=== PATIENT | female | born 1970 | race Caucasian/White ===

== ENCOUNTER 2024-09-29 21:26 | Emergency (ER) | payer OTHER, SELFPAY ==
--- NOTE | ~2024-09-29 | US_ITS ---
EXAMINATION:US venous doppler LE LT INDICATION:Left leg pain and swelling TECHNIQUE: Multiple grayscale, color flow and Doppler images of the left lower extremity deep venous systems were obtained and reviewed. COMPARISON:No prior studies for comparison. FINDINGS: There is deep venous thrombosis of the left popliteal, posterior tibial, peroneal and gastr ocnemius veins. The femoral vein is patent. IMPRESSION: 1: Extensive deep venous thrombosis of the left lower extremity. Reviewed, dictated and finalized at location B.
[2024-09-29 21:29] VITALS: BP 147/77; PULSE 77; RESP 20; TEMP 36.9; O2SAT 100
--- OUTSIDE RECORDS SUMMARY | 2024-09-29 23:31 | XMS_ITS | Clinical Summary ---
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 Gender Identity Not on file Sexual Orientation Not on file Plan of Treatment Health Maintenance Due Date Last Done Comments DTAP/TDAP/TD VACCINES (1 - Tdap) 1989 HEPATITIS B VACCINES (1 of 3 - 19+ 3-dose series) 06/1989 HPV/Cotest (21-29) 1991 CERVICAL CANCER SCREENING 2000 HPV/Cotest (30-65) 2000 PAP SMEAR 2000 BREAST CANCER SCREENING 2010 COLORECTAL SCREENING 2015 Colorectal Cancer Screening 2015 FIT-DNA Q 3 years 2015 FIT/FOBT Q 1 year 2015 Flex Sig/CT Colonography Q 5 years 2015 ZOSTER VACCINE (1 of 2) 2020 INFLUENZA VACCINE (#1) 2024 Insurance [facility] [id number]
--- OUTSIDE RECORDS SUMMARY | 2024-09-29 23:31 | XMS_ITS | Clinical Summary ---
Author Organization [facility] Address [address] [place] [address] Care Team Providers Care Manager Pest Name Role Phone Sana Jimenez MD Unavailable [phone] Jolie Jean-Baptiste MD Unavailable [phone] Nikki Abel NP Primary Care Provider [phone] Allergies Active Allergy Reactions Criticality Noted Date Comments Other Rash Medium Laundry detergent (Cheer brand) Medications cranberry 500 mg capsule Active fluticasone propionate (FLONASE) 50 mcg/actuation nasal spray 01/09/2016 Active aspirin 81 MG oral suspension Active calcium carbonate (OS-JO) 1,250 mg (500 mg elemental) tablet 11/01/2019 Active docusate sodium (Colace) 100 mg capsule 12/16/2021 Active Active Problems Problem Noted Date Diagnosed Date Plantar fasciitis of left foot 05/19/2024 Assessment & Plan (05/19/2024 7:58 AM CDT): Referral to podiatry 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 Reviewed diagnosis and findings on ultrasound of the thyroid last year. Relatively asymptomatic. If starts growing or causing more symptoms then we can have her see ENT for consultation Slow transit constipation 04/02/2023 Assessment & Plan (04/02/2023 5:20 PM RN FLOAT): Encouraged her to increase fluid intake and add fiber. Okay to take MiraLax daily as needed if Colace is insufficient. Annual physical exam 01/05/2023 Overview (02/08/2024): Lab: Pap:all normal Due labs Jeovanny: to go back to yearly screening. Colonoscopy:2020 cologuard. Will repeat in 2023- will order BMD: Gardasil: Assessment & Plan (05/19/2024 7:54 AM CDT): -Recommended: Healthy diet. Avoiding junk food/fast food. -30 minutes of exercise most days of the week. Increase to 45 minutes for weight loss. Health Maintenance reviewed - up-to-date. -Influenza vaccine every year Recommend: -There are no preventive care reminders to display for this patient. -F/u in 1 year for Annual PE or sooner if needed Assessment & Plan (02/08/2024 3:57 PM RN FLOAT): Pap done. RTO 12m. I will send the results to the portal. If she has not heard in a week, to call the office. She is due for cologuard. We discussed her cousin with colon cancer. She doesn't qualify for genetic testing. She will do the cologuard this year and we will go from there. False positives and negatives discussed. Assessment & Plan (01/05/2023 1:39 PM RN FLOAT): Pap done. RTO 12m. I will send the results to the portal. If she has not heard in a week, to call the office. Chronic midline low back pain without sciatica 0 05/07/2018 Endometriosis 08/18/2011 Overview (08/29/2019): Note: per Dr. Juan Manuel Stanton at [facility] H/O IUI conception Resolved Problems Problem Noted Date Diagnosed Date Resolved Date RLQ abdominal pain 01/05/2023 Assessment & Plan (01/05/2023 2:03 PM RN FLOAT): To watch diet To work on constipation To see if it is activity related. Well woman exam with routine gynecological exam 05/07/2018 01/05/2023 Goiter 10/16/2017 04/02/2023 Urinary retention 10/21/2016 04/02/2023 Deep vein thrombosis (DVT) of lower extremity 08/27/19 16 04/02/2023 Encounters Date Type Department Care Team Description 08/08/2024 Results Follow-Up [facility] [address] [facility] [address] [place] [id number] Jolie Jean-Baptiste MD Screening Mammogram Bilateral W Apolinar 08/06/2024 9:15 AM CDT - 08/06/2024 11:59 PM CDT Hospital Encounter [facility] [address] [place] [address] Screening mammogram for breast cancer Discharge Disposition: Discharge to home or self care from Last 3 Months Immunizations Immunization Administration Dates Next Due Hep B Vaccine 07/12/2002,06/09/2002 Influenza, Quadrivalent, Rec ombinant, Egg Free, Preservative Free, Intramuscular 11/28/2021,11/16/2019,11/05/2018 Influenza, Quadrivalent, Spl it, Preservative Free, Intradermal 12/01/2022 Influenza, Quadrivalent, Spl it, Preservative Free, Intramuscular 01/02/2018,12/20/2016,12/18/2012 Influenza, Trivalent, Preser vative Free, Intramuscular 12/20/2016 Influenza, Unspecified 12/15/2023 MMR 02/03/1994 Measles 10/29/1972 Moderna SARS-CoV-2 Monovalen t Vaccination (12+ YRS) 06/28/2021,02/24/2021,06/08/2020,05/11 Pfizer Sars-Cov-2 Bivalent V accination (12+ YRS) 12/07/2021 Pneumococcal Polysaccharide PPV23 02/14/2016 Td, adsorbed 08/31/2001,03/31/1996,03/16/1986 Tdap 11/16/2019,03/02/2004 ZOSTER LIVE 02/24/2021 ZOSTER Recombinant 05/25/2021,02/24/2021, 021 Surgical History Surgery Date Site/Laterality Comments RI TONSILLECTOMY PRIMARY/SECONDARY <AGE 12 Tonsillectomy - (1975) (Added by TW Conv) RI LAPAROSCOPY W/RMVL ADNEXA L STRUCTURES Laparoscopy With Adnexectomy Unilateral Right - Left ovarian cystectomy; 11/2015 (Added by TW Conv) LAPAROTOMY OOPHERECTOMY Right LAPAROSCOPIC OVARIAN CYSTECTOMY Bilateral Medical History Medical History Date Comments Palpitations monitor was nega tive in the past Anemia 2011 History of anemi a - (Added by TW Conv) Headache Sinus headache - (Added by TW Conv) Acute embolism and thrombosi s of deep vein of left lower extremity (HCC) provoked by OCPs an d Plane flight Personal history of other me dical treatment History of cancer antigen 12 5 (CA-125) measurement - (Added by TW Conv) Endometriosis of ovary Endometri angus of ovary - bilateral; 11/2015 (Added by TW Conv) Constipation Migraines high school Family History Medical History Relation Name Comments Colon cancer Cousin Ryanne Peters's daught er. Asthma Daughter Jessica COPD Father Nehemias Cancer Father Nehemias Lung cancer Father Nehemias Breast cancer Father's Sister Bladder Cancer Maternal Grandfather Harvinder Famil y history of malignant neoplasm of urinary bladder - diagnosed age 96 (Added by TW Conv) Blood Clot Mother Sahara Family history of blood clots - (Added by TW Conv) Hyperlipidemia Mother Sahara Family histor y of hyperlipidemia - (Added by TW Conv) Hypertension Mother Sahara Family history of hypertension - (Added by TW Conv) Breast cancer Mother's Sister 1 Sanjuana Family hi story of malignant neoplasm of breast - diagnosed age 39 (Added by TW Conv) Stroke Mother's Sister 1 Sanjuana Uterine cancer Mother's Sister 2 Lorraine Family h istory of malignant neoplasm of uterus - diagnosed age 65 (Added by TW Conv) Bone cancer Mother's Sister 3 Madison Kidney cancer Mother's Sister 3 Madison duodenal Cancer Mother's Sister 3 Madison Ovarian cancer Neg Hx no change cmt 01/06/23 Thyroid cancer Neg Hx Relation Name Status Comments Cousin Ryanne Daughter Jessica Alive Father Nehemias Father's Sister Maternal Grandfather Harvinder Mother Sahara Alive Mother's Sister 1 Sanjuana Alive Mother's Sister 2 Lorraine Alive Mother's Sister 3 Madison Alive Social History Tobacco Use Types Packs/Day Years Used Date Smoking Tobacco: Never Smokeless Tobacco: Never Tobacco Cessation:Counseling Given: Not Answered Alcohol Use Standard Drinks/Week Comments Never 0 (1 standard drink = 0.6 oz pur e alcohol) Humiliation, Afraid, Rape, and Kick questionnair e Answer Date Recorded Within the last year, have y ou been afraid of your partner or ex-partner? No 01/05/2023 Within the last year, have y ou been humiliated or emotionally abused in other ways by your partner or ex-partner? No Within the last year, have y ou been kicked, hit, slapped, or otherwise physically hurt by your partner or ex-partner? No 01/05/2023 Within the last year, have y ou been raped or forced to have any kind of sexual activity by your partner or ex-partner? No 01/05/2023 Social Connection and Isolation Panel [NHANES] A nswer Date Recorded Frequency of Communication with Friends and Fami ly Not on file 05/07/2018 Frequency of Social Gatherings with Friends and Family Not on file 05/07/2018 Attends Worship Services Not on file 05/07 Active Member of Clubs or Organizations Not on f ile 05/07/2018 Attends Club or Organization Meetings Not on deonte e 05/07/2018 Marital Status 05/07/2018 AUDIT-C Answer Date Recorded Q1: How often do you have a drink containing alcohol? Never 05/19/2024 Q2: How many drinks containi ng alcohol do you have on a typical day when you are drinking? Patient does not drink Q3: How often do you have si x or more drinks on one occasion? 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 Not on file Obstetrics History Para Term AB IAB SAB Ectopic Multiple Livin g Live Births 1 1 1 1 1 Date Outcome GA Total Labor Labor/2nd/3rd Weight Sex Type Anes PTL Juliet A1 A5 Name Clin 2005 Term 39w0 d 3.629 kg (8 lb) F Vag-S pont Living Last Filed Vital Signs Vital Sign Reading Time Taken Comments Blood Pressure 118/74 05/19/2024 7:03 AM CDT Pulse 70 05/19/2024 7:03 AM CDT Temperature 36.5 C (97.7 F) 05/19/2024 7:03 AM CDT Respiratory Rate 16 05/19/2024 7:03 AM CDT Oxygen Saturation 95% 05/19/2024 7:03 AM CDT Inhaled Oxygen Concentration - - Weight 71.2 kg (157 lb) 08/06/2024 9:27 AM CDT Height 170.2 cm (5' 7) 08/06/2024 9:27 AM CDT Body Mass Index 24.59 08/06/2024 9:27 AM CDT Plan of Treatment Health Maintenance Due Date Last Done Comments Covid-19 Vaccine ( season) 2023 12/07/2021, 06/28/2021, 02/24/2021, Additional history exists Influenza Vaccine (#1) 2024 , 12/01/2022, 11/28/2021, Additional history exists Cervical Cancer Screening 02/07/20252023, 01/05/2023, 04/29/2017 Depression Screening 05/19/2025 05/19/2024, 04/02/2023, 01/05/2023 Regular Well Visit/Exam 18-64 05/19/2025 05/19/2024, 02/08/2024, 04/02/2023, Additional history exists Breast Cancer Screening-Mammogram 08/06/2025 08/06/2024, 08/07/2023, 05/24/2022, Additional history exists Colon Cancer Screening-DNA Stool 03/30/2027 03/30/2024, 12/02/2020 DTaP/Tdap/Td Vaccine (3 - Td or Tdap) 11/15/2029 11/16/2019, 03/02/2004, 08/31/2001, Additional history exists Hepatitis B Screening Completed 07/12/2002, 003 Pneumococcal vaccine <65 Aged Out 02/14/2016 No longer eligible based on patient's age to complete this topic Zoster Vaccine Completed 05/25/2021, 01/31, 02/24/2021, Additional history exists Hepatitis C Screening Completed 04/10/2023 Procedures Procedure Name Priority Date/Time Associated Diagnosis Comments SCREENING MAMMOGRAM BILATERAL W APOLINAR Schedule Routine, Read Routine (OP Routine) 08/06/2024 9:32 AM CDT Screening mammogram for breast cancer STOOL DNA COLOGUARD Routine 03/30/2024 9:10 AM RN FLOAT Colon cancer screening PAP AND HPV, REFLEX TO HPV GENOTYPES Routine 02/08/2024 4:05 PM RN FLOAT Screening for cervical cancer HEPATITIS C ANTIBODY Routine 04/10/2023 7:59 AM RN FLOAT Annual physical exam Encounter for hepatitis C screening test for low risk patient from Last 3 Months or Most Recently Relevant to Health Maintenance Results * Screening Mammogram Bilateral W Apolinar (08/06/2024 9:32 AM CDT) Anatomical Region Laterality Modality Breast Bilateral Mammography Impressions 08/07/2024 4:36 PM CDT Bilateral No evidence of malignancy in either breast. OVERALL BI-RADS FINAL ASSESSMENT: 2 - Benign RECOMMENDATION: Recommend bilateral annual screening mammography. Narrative 08/07/2024 4:36 PM CDT EXAMINATION: Screening Mammogram Bilateral W Apolinar: 08/06/2024 COMPARISON: Relevant prior studies available at the time of interpretation were reviewed. TECHNIQUE: Mammography was performed with 2D and digital breast tomosynthesis (DBT) images. CAD was utilized. BREAST PARENCHYMAL COMPOSITION: The breasts are heterogeneously dense, which may obscure small masses. FINDINGS: Bilateral There is no suspicious mass, calcification, or architectural distortion in either breast.There are benign calcifications in both breasts. us Jolie Jean-Baptiste MD IMG MAMMO PROCEDURE S Final Result * Stool DNA - Cologuard (03/30/2024 9:10 AM RN FLOAT) Stool DNA - Cologuard Negative Negative [facility] (CLIA #:[id number]) Comment: NEGATIVE TEST RESULT. A negative Cologuard result indicates a low likelihood that a colorectal cancer (CRC) or advanced adenoma (adenomatous polyps with more advanced pre-malignant features) is present. The chance that a person with a negative Cologuard test has a colorectal cancer is less than 1 in 1500 (negative predictive value >99.9%) or has an advanced adenoma is less than 5.3% (negative predictive value 94.7%). These data are based on a prospective cross-sectional study of 10,000 individuals at average risk for colorectal cancer who were screened with both Cologuard and colonoscopy. (Sahil Rajput et al, N Engl J Med 2014;370(14):4897-3495) The normal value (reference range) for this assay is negative. COLOGUARD RE-SCREENING RECOMMENDATION: Periodic colorectal cancer screening is an important part of preventive healthcare for asymptomatic individuals at average risk for colorectal cancer. Following a negative Cologuard result, the [place] Cancer Society and U.S. Multi-Society Task Force screening guidelines recommend a Cologuard re-screening interval of 3 years. References: [place] [employer] Society Guideline for Colorectal Cancer Screening: https://www.cancer.org/cancer/inqyf-fefdsi-wpecal/cxakxgbbp-xwzqokfad-prfevxu/ac s-rec ommendations.html.; Sriram BRAVO, Annamarie CAMPBELL, Lucas BatesK, Colorectal Cancer Screening: Recommendations for Physicians and Patients from the U.S. Multi-Society Task Force on Colorectal Cancer Screening , Am J Gastroenterology 2017; 112:2746-7679. TEST DESCRIPTION: Composite algorithmic analysis of stool DNA-biomarkers with hemoglobin immunoassay. Quantitative values of individual biomarkers are not reportable and are not associated with individual biomarker result reference ranges. Cologuard is intended for colorectal cancer screening of adults of either sex, 45 years or older, who are at average-risk for colorectal cancer (CRC). Cologuard has been approved for use by the U.S. FDA. The performance of Cologuard was established in a cross sectional study of average-risk adults aged 50-84. Cologuard performance in patients ages 45 to 49 years was estimated by sub-group analysis of near-age groups. Colonoscopies performed for a positive result may find as the most clinically significant lesion: colorectal cancer [4.0%], advanced adenoma (including sessile serrated polyps greater than or equal to 1cm diameter) [20%] or non- advanced adenoma [31%]; or no colorectal neoplasia [45%]. These estimates are derived from a prospective cross-sectional screening study of 10,000 individuals at average risk for colorectal cancer who were screened with both Cologuard and colonoscopy. (Sahil Broussard al, N Engl J Med 2014;370(14):9271-7221.) Cologuard may produce a false negative or false positive result (no colorectal cancer or precancerous polyp present at colonoscopy follow up). A negative Cologuard test result does not guarantee the absence of CRC or advanced adenoma (pre-cancer). The current Cologuard screening interval is every 3 years. ([place] Cancer Society and U.S. Multi-Society Task Force). Cologuard performance data in a 10,000 patient pivotal study using colonoscopy as the reference method can be accessed at the following location: www.Decide.com/results. Additional description of the Cologuard test process, warnings and precautions can be found at www.Reduce Datard.com. Stool 03/30/2024 9:10 AM RN FLOAT 03/31/2024 10:13 AM RN FLOAT us Jolie Jean-Baptiste MD LAB BODY FLUIDS AND STOOLS ORDERABLES Final Result [facility] (CLIA #:[id number]) [place] [place] [address] * Pap and HPV, reflex to HPV Genotypes (02/08/2024 4:05 PM RN FLOAT) CLINICAL INFORMATION: [facility] Comment:WWE LMP [facility] Comment:UNKNOWN Previous Pap [facility] Comment:NONE GIVEN Prev. Bx [facility] Comment:NONE GIVEN SOURCE: [facility] Comment:Cervix, Endocervix Pap, specimen adequacy [facility] Comment:SATISFACTORY FOR JOSE CARLOS LUATION HPV interp [facility] Comment: Cytology Results: Negative for intraepithelial lesion or malignancy. Atrophic pattern; predominantly parabasal cells COMMENTS [facility] Comment: This Pap test has been evaluated with computer assisted technology. 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 It is not a diagnostic test and is subject to false negative and false positive results. It is most reliable when a satisfactory sample, regularly obtained, is submitted with relevant clinical findings and history, and when the Pap result is evaluated along with historic and current clinical information. Human papillomavirus DNA, High Risk E6/E7 Not Detected NOT DETECTED [facility] Comment: Not Detected High Risk HPV types (16,18,31,33,35,39,45,51,52, 56,58,59,66,68) were not detected. Other HPV types which cause anogenital lesions may be present. The significance of the other types of HPV in malignant processes has not been established. Methodology: Real Time PCR Thin prep-Endocervica l 02/08/2024 4:05 PM RN FLOAT 02/09/2024 4:29 AM RN FLOAT Jolie Jean-Baptiste MD LAB CYTOLOGY ORDERA BLES Final Result [facility] [address] [address] [place] [id number] [address] * Hepatitis C antibody Blood (04/10/2023 7:59 AM RN FLOAT) Hep C Ab Nonreactive Nonreactive [facility] Comment: Interpretive Data Nonreactive: Antibodies to HCV not detected. Does NOT exclude the possibility of recent exposure to HCV. Equivocal: Equivocal for HCV antibodies. Supplemental molecular testing will be automatically performed to determine infection status in accordance with current CDC screening recommendations. Reactive: Positive for HCV antibodies. This may represent current or past HCV infection. Supplemental molecular testing will be automatically performed to determine current infection status in accordance with current CDC screening recommendations. Interpretive data was last revised on 2019. Blood 04/10/2023 7:59 AM RN FLOAT 04/10/2023 2:39 PM RN FLOAT Norma Lazo MD LAB MICROBIOLOGY - GEN ERAL ORDERABLES Edited Result - Final [facility] [id number] [address] Department [place] [address] from Last 3 Months or Most Recently Relevant to Health Maintenance Insurance [facility] CHOICE PLUS [facility]NA [facility] Care Teams Manager Pest Relationship Specialty Start Date End Date Nikki Abel NP [address] [address] PCP - General Family Medicine 05/19/24 Sana Jimenez MD [address] [facility] [address] [id number] [place] [address] Consulting Physician Obstetrics and Gynecology 06/13/22 Jolie Jean-Baptiste MD [address] [place] [address] Consulting Physician Obstetrics and Gynecology 12/15/22
--- OUTSIDE RECORDS SUMMARY | 2024-09-29 23:31 | XMS_ITS | Encounter Summary ---
Author Organization [facility] Healthcare Address [address] [place] [address] Care Team Providers Care Electronic Engineering Draftsperson Name Role Phone Sana Jimenez MD Unavailable [phone] Jolie Jean-Baptiste MD Unavailable [phone] Nikki Abel NP Primary Care Provider [phone] Encounter Details Date Type Department Care Team (Late st Contact Info) Description 08/08/2024 Results Follow-Up [facility] [address] [place] [address] [address], [place] [address] Jolie Jean-Baptiste MD [address] [place] [address] Screening Mammogram Bilateral W Apolinar Social History Tobacco Use Types Packs/Day Years Used Date Smoking Tobacco: Never Smokeless Tobacco: Never Alcohol Use Standard Drinks/Week Comments Never 0 [...] and Family Not on file 05/07/2018 Attends [employer] Not on file 05/07 Active Member [...] on file Legal Sex Female 11:14 AM 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 Gender Identity Female 11/12/2020 2:16 PM CDT Sexual Orientation Straight 11/12/2020 2: 16 PM CDT 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 Not on file documented as of this encounter Plan of Treatment Not on file documented as of this encounter Visit Diagnoses Not on filedocumented in this encounter Care Teams Electronic Engineering Draftsperson Relationship Specialty Start Date End Date Nikki Abel NP [address] [address] PCP - General Family Medicine 05/19/24 Sana Jimenez MD [address] [facility] [address] [phone] [place] [address] Consulting Physician Obstetrics and Gynecology 06/13/22 Jolie Jean-Baptiste MD [address] [facility] [address] [place] [address] Consulting Physician Obstetrics and Gynecology 12/15/22 documented as of this encounter
--- OUTSIDE RECORDS SUMMARY | 2024-09-29 23:31 | XMS_ITS | Referral Summary ---
Author Organization [facility] Address [address] [place] [address] Care Team Providers Care Classification Analyst Name Role Phone Sana Jimenez MD Unavailable [phone] Jolie Jean-Baptiste MD Unavailable [phone] Nikki Abel NP Primary Care Provider [phone] Encounters Date Type Department Care Team Description 08/08/2024 Results Follow-Up [facility] [address] [facility] [address] [place] [address] Jolie Jean-Baptiste MD Screening Mammogram Bilateral W Apolinar 08/06/2024 9:15 AM CDT - 08/06/2024 11:59 PM CDT Hospital Encounter [facility] [address] [place] [address] Screening mammogram for breast cancer Discharge Disposition: Discharge to home or self care from Last 3 Months Allergies Active Allergy Reactions Criticality Noted Date [...] 04/02/2023 Assessment & Plan (04/02/2023 5:20 PM SINGLE POINTED OPERATOR): Chronic. Reviewed diagnosis and findings on ultrasound of the thyroid last year. Relatively asymptomatic. If starts growing or causing more symptoms then we can have her see ENT for consultation Slow transit constipation 04/02/2023 Assessment & Plan (04/02/2023 5:20 PM SINGLE POINTED OPERATOR): Encouraged her to increase fluid intake and [...] needed Assessment & Plan (02/08/2024 3:57 PM SINGLE POINTED OPERATOR): Pap done. RTO 12m. I will send [...] discussed. Assessment & Plan (01/05/2023 1:39 PM SINGLE POINTED OPERATOR): Pap done. RTO 12m. I will send the results to the portal. If she has not heard in a week, to call the office. Chronic midline low back pain without sciatica 0 05/07/2018 Endometriosis 08/18/2011 Overview (08/29/2019): Note: per Dr. Juan Manuel Stanton at [facility] H/O IUI conception Resolved Problems Problem Noted Date Diagnosed Date Resolved Date RLQ abdominal pain 01/05/2023 4 Assessment & Plan (01/05/2023 2:03 PM SINGLE POINTED OPERATOR): To watch diet To work on constipation To see if it is activity related. Well woman exam with routine gynecological exam 05/07/2018 01/05/2023 Goiter 10/16/2017 04/02/2023 Urinary retention 10/21/2016 04/02/2023 Deep vein thrombosis (DVT) of lower extremity 08/27/19 16 04/02/2023 Immunizations Immunization Administration Dates Next Due Hep [...] ZOSTER LIVE 02/24/2021 ZOSTER Recombinant 05/25/2021,02/24/2021, 021 Social History Tobacco Use Types Packs/Day Years [...] and Family Not on file 05/07/2018 Attends [employer] Not on file 05/07 Active Member [...] on file Legal Sex Female 11:14 AM SINGLE POINTED OPERATOR Gender Identity Female 11/12/2020 2:16 PM CDT Sexual Orientation Straight 11/12/2020 2: 16 PM CDT 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 Not on file Last Filed Vital Signs Vital Sign Reading [...] 08/06/2024 9:27 AM CDT Plan of Treatment Not on file Procedures Procedure Name Priority Date/Time Associated Diagnosis Comments SCREENING MAMMOGRAM BILATERAL W APOLINAR Schedule Routine, Read Routine (OP Routine) 08/06/2024 9:32 AM CDT Screening mammogram for breast cancer STOOL DNA COLOGUARD Routine 03/30/2024 9:10 AM SINGLE POINTED OPERATOR Colon cancer screening PAP AND HPV, REFLEX TO HPV GENOTYPES Routine 02/08/2024 4:05 PM SINGLE POINTED OPERATOR Screening for cervical cancer HEPATITIS C ANTIBODY Routine 04/10/2023 7:59 AM SINGLE POINTED OPERATOR Annual physical exam Encounter for hepatitis C [...] in both breasts. us Jolie Jean-Baptiste MD [facility] MAMMO PROCEDURE S Final Result * Stool DNA - Cologuard (03/30/2024 9:10 AM SINGLE POINTED OPERATOR) Stool DNA - Cologuard Negative Negative [facility] (CLIA #:[id number]) Comment: NEGATIVE TEST RESULT. A negative Cologuard [...] Rajput et al, N Engl J Med 2014;370(14):6370-9922) The normal value (reference range) for this assay is negative. COLOGUARD RE-SCREENING RECOMMENDATION: Periodic colorectal cancer screening is an important part of preventive healthcare for asymptomatic individuals at average risk for colorectal cancer. Following a negative Cologuard result, the [place] Cancer Society and U.S. Multi-Society Task Force screening guidelines recommend a Cologuard re-screening interval of 3 years. References: [place] [employer] Guideline for Colorectal Cancer Screening: https://www.cancer.org/cancer/rpjcv-roidif-qqjgbm/pxfygincl-yvjzgufbo-dqkpntn/ac s-rec ommendations.html.; Sriram DK, Annamarie CR, Lucas IRVIN, Colorectal Cancer Screening: Recommendations for Physicians and Patients from the U.S. Multi-Society Task Force on Colorectal Cancer Screening , Am J Gastroenterology 2017; 112:2588-6800. TEST DESCRIPTION: Composite algorithmic analysis of stool [...] screened with both Cologuard and colonoscopy. (Sahil Watson. et al, N Engl J Med 2014;370(14):3818-9651.) Cologuard may produce a false negative or false positive result (no colorectal cancer or precancerous polyp present at colonoscopy follow up). A negative Cologuard test result does not guarantee the absence of CRC or advanced adenoma (pre-cancer). The current Cologuard screening interval is every 3 years. ([place] Cancer Society and U.S. Multi-Society Task Force). Cologuard performance data in a 10,000 patient pivotal study using colonoscopy as the reference method can be accessed at the following location: www.[employer].com/results. Additional description of the Cologuard test process, warnings and precautions can be found at www.cologChargePoint, Inc.rd.com. Stool 03/30/2024 9:10 AM SINGLE POINTED OPERATOR 03/31/2024 10:13 AM SINGLE POINTED OPERATOR Jolie Jean-Baptiste MD LAB BODY FLUIDS AND STOOLS ORDERABLES Final Result Performing Organization Address City/[facility]/ZIP Co de Phone Number [facility] (CLIA #:[id number]) [place] [address] * Pap and HPV, reflex to HPV Genotypes (02/08/2024 4:05 PM SINGLE POINTED OPERATOR) CLINICAL INFORMATION: [facility] Comment:WWE LMP [facility] Comment:UNKNOWN Previous Pap [facility] Comment:NONE GIVEN Prev. Bx [facility] Comment:NONE GIVEN SOURCE: [facility] Comment:Cervix, Endocervix Pap, specimen adequacy [facility] Comment:SATISFACTORY FOR JOSE CARLOS LUATION HPV interp [facility] Comment: Cytology Results: Negative for intraepithelial lesion or malignancy. Atrophic pattern; predominantly parabasal cells COMMENTS [facility] Comment: This Pap test has been evaluated with computer assisted technology. Deputy Of Counter Intelligence [facility] Comment: PCM, CT(ASCP) CT Screening Location: [place] [address] [place] [address] Comment [facility] Comment: EXPLANATORY NOTE: The Pap is a [...] High Risk E6/E7 Not Detected NOT DETECTED [facility] Comment: Not Detected High Risk HPV types (16,18,31,33,35,39,45,51,52, 56,58,59,66,68) were not detected. Other HPV types which cause anogenital lesions may be present. The significance of the other types of HPV in malignant processes has not been established. Methodology: Real Time PCR Thin prep-Endocervica l 02/08/2024 4:05 PM SINGLE POINTED OPERATOR 02/09/2024 4:29 AM SINGLE POINTED OPERATOR Jolie Jean-Baptiste MD LAB CYTOLOGY ORDERA BLES Final Result Performing Organization Address City/[facility]/ZIP Co de Phone Number [facility] [address] [place] [address] [facility] [address] [place] [address] * Hepatitis C antibody Blood (04/10/2023 7:59 AM SINGLE POINTED OPERATOR) Hep C Ab Nonreactive Nonreactive [facility] Comment: Interpretive Data Nonreactive: Antibodies to HCV [...] revised on 2019. Blood 04/10/2023 7:59 AM SINGLE POINTED OPERATOR 04/10/2023 2:39 PM SINGLE POINTED OPERATOR Norma Lazo MD LAB MICROBIOLOGY - GEN ERAL ORDERABLES Edited Result - Final [facility] [address] Department of Laboratories [place], [place] [id number] from Last 3 Months or Most Recently Relevant to Health Maintenance Insurance [facility] [place] [address] [place] [address] [facility] Care Teams Classification Analyst Relationship Specialty Start Date End Date Nikki Abel NP [address] [id number] PCP - General Family Medicine 05/19/24 Sana Jimenez MD [address] [facility] [id number] [place] [address] Consulting Physician Obstetrics and Gynecology 06/13/22 Jolie Jean-Baptiste MD [address] [place] [address] DR BARR [address] [place] [id number] Consulting Physician Obstetrics and Gynecology 12/15/22
[2024-09-29 23:39] LABS: Hematocrit 36.0 % (37.0-47.0); Hemoglobin 11.4 g/dL (12.0-15.0); Immature Granulocyte Percent A 0.2 % (0-0.5); Lymphocytes Absolute Auto 1.56 K/mm3 (0.9-3.2); Mean Corpuscular HGB Conc 31.7 g/dl (32-36); Mean Corpuscular Hemoglobin 28.0 pg (26-34); Mean Corpuscular Volume 88.5 fl (80-100); Nucleated Red Blood Cells Absolute Auto 0.000 K/mm3 (0.0-0.012); Nucleated Red Blood Cells Perc 0.0 % (0.0-0.2); Platelet Count Result 188 k/mm3 (150-375); Red Blood Count 4.07 M/mm3 (4.2-5.4); White Blood Count 5.2 K/mm3 (4.5-10.0)
[2024-09-29 23:49] LABS: INR 1.0; Prothrombin Time 13.5 Seconds (11.1-14.7)
[2024-09-29 23:51] LABS: Partial Thromboplastin Time 24.4 Seconds (22.3-36.8)
[2024-09-29 23:52] LABS: Alanine Aminotransferase 22 U/L (6-35); Albumin Level 4.2 g/dL (3.5-5.1); Alkaline Phosphatase 70 U/L (38-126); Anion Gap 4 mmol/L (4-12); Aspartate Amino Transferase 28 U/L (14-36); Bilirubin,Total 0.7 mg/dL (0.2-1.3); Blood Urea Nitrogen 16 mg/dL (7-17); Calcium 9.1 mg/dL (8.4-10.2); Carbon Dioxide 31 mmol/L (22-30); Chloride 102 mmol/L (98-107); Estimated Glomerular Filt Rate 40; Glucose 100 mg/dL (65-110); Potassium 3.8 mmol/L (3.4-5.0); Sodium 137 mmol/L (137-145); Total Protein 7.2 g/dL (6.3-8.2)
[2024-09-30 00:18] VITALS: BP 132/87; PULSE 64; RESP 13; O2SAT 99
--- NOTE | 2024-09-30 01:12 | ED_ITS ---
HPI - General Adult General Chief complaint: Extremity Injury, Lower Stated complaint: left leg pain Time Seen by Provider: 09/29/24 23:19 History of Present Illness HPI narrative: This is a 54-year-old woman history of DVT presenting for left lower leg pain. Patient had a procedure fixing a hammertoe and bunion on her left 4th and 5th toe. She then developed calf pain and pain along the anterior oleary. She has a history of blood clots and came to the hospital for evaluation. No other injuries. No chest pain or difficulty breathing Exam 2 Narrative: APPEARANCE: No apparent distress. Head: atraumatic. EYES: EOMI, NOSE: Atraumatic NECK: Trachea midline RESPIRATORY: No increased rate of breathing CTAB CARDIOVASCULAR: RRR, no peripheral edema ABDOMINAL: Non-distended MUSCULOSKELETAl: Focal exam lower extremities revealed tenderness over the anterior a lower extremity compartment. Compartments are soft. Pulses are +2 in the PD TP distribution. no Homans sign. NEURO: Alert. Moving 4/4 extremities SKIN:: Warm, dry. Normal color PSYCHIATRIC: Normal affect Course Vital Signs Vital signs: Vital Signs Temperature 98.5 F 09/29/24 21:29 Pulse Rate 77 09/29/24 21:29 Respiratory Rate 20 09/29/24 21:29 Blood Pressure 147/77 H 09/29/24 21:29 Pulse Oximetry 100 09/29/24 21:29 Temperature 98.5 F 09/29/24 21:29 Pulse Rate 67 09/30/24 03:17 Respiratory Rate 14 09/30/24 03:17 Blood Pressure 119/82 09/30/24 03:17 Pulse Oximetry 100 09/30/24 03:17 Medical Decision Making [facility] Narrative Medical decision making narrative: -Course: 54-year-old female presenting left lower leg pain. Venous ultrasound showed a popliteal thrombus. Patient be given dose of Eliquis and a DVT started back. Patient given primary care follow-up. -DDX includes but is not limited to: Muscle strain, DVT Vital Signs Vital Signs: Vital Signs Temperature 98.5 F 09/29/24 21:29 Pulse Rate 77 09/29/24 21:29 Respiratory Rate 20 09/29/24 21:29 Blood Pressure 147/77 H 09/29/24 21:29 Pulse Oximetry 100 09/29/24 21:29 Temperature 98.5 F 09/29/24 21:29 Pulse Rate 67 08/25 03:17 Respiratory Rate 14 09/30/24 03:17 Blood Pressure 119/82 09/30/24 03:17 Pulse Oximetry 100 09/30/24 03:17 Lab Data 09/29/24 23:33 09/29/24 23:33 Labs: Lab Results 09/29/24 Range/Units 23:33 WBC 5.2 (4.5-10.0) K/mm3 RBC 4.07 L (4.2-5.4) M/mm3 Hgb 11.4 L (12.0-15.0) g/dL Hct 36.0 L (37.0-47.0) % MCV 88.5 (80-100) fl MCH 28.0 (26-34) pg MCHC 31.7 L (32-36) g/dl RDW 12.4 (11.5-14.5) % Plt Count 188 (150-375) k/mm3 MPV 9.2 (7.4-10.4) fl Immature Gran % (Auto) 0.2 (0-0.5) % Neut % (Auto) 55.8 (45.5-73.1) % Lymph % (Auto) 29.9 (18.3-44.2) % [place] % (Auto) 7.9 (2.6-8.5) % Eos % (Auto) 5.2 H (0-4.4) % Baso % (Auto) 1.0 (0.2-1.2) % Lymph # (Auto) 1.56 (0.9-3.2) K/mm3 [place] # (Auto) 0.4 (0.1-0.6) K/mm3 Eos # (Auto) 0.3 (0-0.3) K/mm3 Baso # (Auto) 0.1 (0.0-0.1) K/mm3 Abs Immat Gran (auto) 0.01 (0.00-0.031) K/mm3 Absolute Neuts (auto) 2.9 (1.3-6.7) K/mm3 Absolute Nucleated RBC 0.000 (0.0-0.012) K/mm3 Nucleated RBC % 0.0 (0.0-0.2) % PT 13.5 (11.1-14.7) Seconds INR 1.0 APTT 24.4 (22.3-36.8) Seconds Sodium 137 (137-145) mmol/L Potassium 3.8 (3.4-5.0) mmol/L Chloride 102 (98-107) mmol/L Carbon Dioxide 31 H (22-30) mmol/L Anion Gap 4 (4-12) mmol/L BUN 16 (7-17) mg/dL Creatinine 1.38 H (0.7-1.0) mg/dL Estim Creat Clear Calc Not Reportable Estimated GFR 40 L (59 - ) Glucose 100 (65-110) mg/dL Calcium 9.1 (8.4-10.2) mg/dL Total Bilirubin 0.7 (0.2-1.3) mg/dL AST 28 (14-36) U/L ALT 22 (6-35) U/L Alkaline Phosphatase 70 (38-126) U/L Total Protein 7.2 (6.3-8.2) g/dL Albumin 4.2 (3.5-5.1) g/dL Discharge Plan Discharge Clinical Impression: Popliteal DVT (deep venous thrombosis) Patient Disposition: Home Condition: Stable Instructions: Antibiotic Form, Deep Vein Thrombosis (DC) Additional Instructions: You have a blood clot in your popliteal vein. Please use the Eliquis DVT starter pack. Please follow-up with your primary care physician for further management. If you develop chest pain, shortness of breath please return to ED for re-evaluation. While taking Eliquis you are at increased risk for bleeding, if you strike your head you should go to an ED immediately for a CT of your brain. If you develop bloody or dark stools please return to the ED re- evaluation Patient Language: [place] Islander Prescriptions: New Eliquis DVT-PE Treat 30D Start 5 mg (74 tabs) tablets,dose pack See Rx Instructions .ROUTE .COMPLEX Qty: 74 0RF Rx Instructions: orally per package directions Follow-up/Referrals: Page,JONATAN Marcelino [Primary Care Provider] -
[2024-09-30 03:17] VITALS: BP 119/82; PULSE 67; RESP 14; O2SAT 100
[2024-09-30] MEDS: APIXABAN 5 MG TABLET 10 MG PO (04:10)
[2024-09-30 04:15] VITALS: BP 119/82; PULSE 67; RESP 14; O2SAT 100
== END 2024-09-30 04:16 | disposition home or self-care (01) ==
PROVIDERS: Emergency Provider Emergency Medicine; PCP Nurse Practitioner Family
DX: T81.72XA Complication of vein following a procedure, not elsewhere classified, initial encounter (principal); I82.432 Acute embolism and thrombosis of left popliteal vein; I82.442 Acute embolism and thrombosis of left tibial vein; I82.452 Acute embolism and thrombosis of left peroneal vein; I82.462 Acute embolism and thrombosis of left calf muscular vein; Y83.8 Other surgical procedures as the cause of abnormal reaction of the patient, or of later complication, without mention of misadventure at the time of the procedure
CPT/HCPCS: 36415; 80053; 85025; 85610; 85730; 93971; 99284; A9270